=== PATIENT | female | born 1960 | race Caucasian/White ===

== ENCOUNTER → 2020-12-06 09:37 | Outpatient (BNVA) | payer BC, SELFPAY | PROVIDERS: PCP Internal Medicine; Referring Provider Internal Medicine; Visit Provider Specialist | DX: G43.711 Chronic migraine without aura, intractable, with status migrainosus (principal) | CPT/HCPCS: 99204 ==

== ENCOUNTER 2020-12-06 11:22 | Outpatient (CLI) | payer BC, SELFPAY ==
[2020-12-06 12:34] LABS: Erythrocyte Sedimentation Rate 22 mm/hr (0-15)
[2020-12-06 12:44] LABS: C Reactive Protein 7.6 mg/L (0.0-4.9); Vitamin B12 325 pg/mL (232-1245)
== END 2020-12-06 11:23 | disposition home or self-care (01) ==
PROVIDERS: PCP Internal Medicine; Visit Provider Specialist
DX: G43.909 Migraine, unspecified, not intractable, without status migrainosus (principal)
CPT/HCPCS: 36415; 82607; 85651; 86140

== ENCOUNTER 2021-01-17 12:57 | Outpatient (CLI) | payer BC, SELFPAY ==
--- NOTE | 2021-01-17 13:00 | MR_ITS ---
WS: [id number] MRI BRAIN WITHOUT CONTRAST HISTORY: G43.709 - Chronic migraine without aura, not intractable, without status migrainosus COMPARISON: None available. TECHNIQUE: Diffusion imaging, multiplanar T1, T2 and FLAIR imaging obtained. No evidence for acute infarct or hemorrhage. Romero-white matter differentiation is normal. There are s everal scattered T2 and FLAIR signal hyperintensities predominantly in the subcortical distribution i n the frontal and parietal lobes. No remote or acute infarcts are volume loss. Empty sella turcica. Ventricles and extra-axial spaces are normal. No inferior displacement of cerebellar tonsils. The sella turcica and pituitary gland are unremarkabl e. Dural venous sinuses and [place] demonstrate no abnormality on this unenhanced studies. Paranasal sinuses: Clear. Mastoid air cells: Normal. Calvarium and scalp: Well-circumscribed ovoid 13 mm lesion in the LEFT parietal scalp with patient's cyst. No adjacent involvement of the bone. MR/MR head wo con* [id number] IMPRESSION: 1. No evidence for acute hemorrhage or significant white matter disease. 2. Mild, age-appropriate small vessel ischemic disease.
== END 2021-01-17 12:58 ==
LOC: RADSHAW 13:00
PROVIDERS: PCP Internal Medicine; Visit Provider Specialist
DX: G43.711 Chronic migraine without aura, intractable, with status migrainosus (principal)
CPT/HCPCS: 70551; 99213; 99214